=== PATIENT | female | born 1945 | race African-American/Black ===

== ENCOUNTER 2016-12-29 12:42 | Emergency (ER) | payer OTHER ==
[~2016-12-29] VITALS: Ht 165.1 cm; Wt 99.0 kg
[~2016-12-29 12:42] MED LIST: ACID CONTROL20 MG PO; ACID REDUCER20 MG PO; ACTOS PO; AMLODIPINE BESYL5 MG PO; ASPIRIN ENTERI325 M1 PO; ASPIRIN PO; ASPIRIN81 M2 PO; BACTRIM DS TABL1 TA2 PO; BENICAR HCT 20-1 TA1 PO; BUMETANIDE2 M1 PO; CANNOT REMEMBER MEDS; CELEXA PO; CIPRO PO; CITALOPRAM HBR40 MG PO; CLOPIDOGREL75 MG PO; COMBIVENT RESPIM4 GM INH; DICYCLOMINE HCL10 MG PO; FERRO-TIME325 MG PO; FLAGYL PO; GLUCOPHAGE XR500 MG PO; GLUCOTROL PO; GLUCOTROL XL PO; HUMALOG100 U/M1 SUBQ; INDERAL20 MG PO; JANUVIA PO; LANTUS100 U/ML SUBQ; LASIX PO; LIPITOR20 MG PO; METFORMIN HCL500 M2 PO; NORCO1 TAB 10/3 DOB; OMNICEF300 MG PO; PREVACID PO; PROPANOLOL PO; PROTONIX PO; TYLENOL #3 PO; VITAMIN D1000 UNIT PO; VITAMIN E400 UNI2 PO; ZANTAC150 M1 PO; ZITHROMAX PO
== END 2016-12-29 14:00 | disposition home or self-care (01) ==
LOC: SED 12:42
DX: L03.116 Cellulitis of left lower limb (principal); L03.111 Cellulitis of right axilla; B37.2 Candidiasis of skin and nail; I25.10 Atherosclerotic heart disease of native coronary artery without angina pectoris; I10 Essential (primary) hypertension; Z90.49 Acquired absence of other specified parts of digestive tract; Z90.11 Acquired absence of right breast and nipple; Z79.4 Long term (current) use of insulin; Z79.899 Other long term (current) drug therapy; Z79.82 Long term (current) use of aspirin; Z85.3 Personal history of malignant neoplasm of breast; Z91.048 Other nonmedicinal substance allergy status
CPT/HCPCS: 99282